=== PATIENT | male | born 1950 | race Caucasian/White ===

== ENCOUNTER 2017-01-21 18:59 | Emergency (ER) | payer SELFPAY ==
[2017-01-21] MEDS ORDERED: Haloperidol Lactate 5 mg/mL 1mL Vial IM STA (19:17)
[2017-01-21] MEDS ORDERED: Haloperidol Lactate 5 mg/mL 1mL Vial ONE (20:02)
[2017-01-21] MEDS: Haloperidol Lactate 5 mg/mL 1mL Vial IVP STA (20:06)
--- NOTE | 2017-01-21 20:08 | ED Physician Chart ---
Chief Complaint/HPI - Patient Information Date Seen:: 01/21/17 Time Seen:: 19:40 Chief Complaint:: ALCOHOL INTOXICATION History of Present Illness:: THIS IS A 66 YO MALE BIB EMS DRUNK, COMBATIVE AND SCREENING OUT AND UNCOOPERATIVE THE PATIENT WAS FOUND DOWN OUTSIDE THE TAVERN THIS AFTERNOON. Allergies:: Allergies Allergy/AdvReac Type Severity Reaction Status Date / Time No Known Allergies Allergy Verified 01/21/17 19:16 Vitals:: Vital Signs - 8 hr 01/21/17 19:16 Temp 98.1 F HR 102 RR 20 BP 131/86 O2 Sat % 96 Historian:: EMS Review:: Nurse's Note Reviewed Review of Systems - Review of Systems General/Constitutional: No fever, No chills, No weight loss, No weakness, No diaphoresis, No edema, No loss of appetite Skin: No skin lesions, No rash, No bruising, Other (THE PATIENT IS TOO DRUNK TO GIVE A REVIEW OF SYSTEMS) Head: No headache, No light-headedness Eyes: No loss of vision, No pain, No diplopia ENT: No earache, No nasal drainage, No sore throat, No tinnitus Neck: No neck pain, No swelling, No thyromegaly, No stiffness, No mass noted Cardio Vascular: No chest pain, No palpitations, No PND, No orthopnea, No edema Pulmonary: No SOB, No cough, No sputum, No wheezing GI: No nausea, No vomiting, No diarrhea, No pain, No melena, No hematochezia, No constipation, No hematemesis G/U: No dysuria, No frequency, No hematuria Musculoskeletal: No bone or joint pain, No back pain, No muscle pain Endocrine: No polyuria, No polydipsia Psychiatric: No prior psych history, No depression, No anxiety, No suicidal ideation Hematopoietic: No bruising, No lymphadenopathy Allergic/Immuno: No urticaria, No angioedema Neurological: No syncope, No focal symptoms, No weakness, No paresthesia, No headache, No seizure, No dizziness, No confusion, No vertigo Past Medical History - Past Medical History Obtainable: Yes (THE PATIENT IS UNABLE TO GIVE A HISTORY) Family Medical History - Family Member father History Unknown: Yes Physical Exam - Physical Examination General/Constitutional: Awake, Well-developed, well-nourished, Alert, No distress, GCS 15, Non-toxic appearing, Ambulatory Other Gen/Cons comments:: THIS PATIENT SMELLS LIKE ALCOHOL WITH SCREAMING LOUD INSULT TO THE STAFF AND UNCOOPERATIVE. Head: Atraumatic Eyes: Lids, conjuctiva normal, PERRL, EOMI Skin: Nl inspection, No rash, No skin lesions, No ecchymosis, Well hydrated, No lymphadenopathy ENMT: External ears, nose nl, Nasal exam nl, Lips, teeth, gums nl Neck: Nontender, Full ROM w/o pain, No JVD, No nuchal rigidity, No bruit, No mass, No stridor Respiratory: Nl effort/Exclusion, Clear to Auscultation, No Wheeze/Rhonchi/Rales Cardio Vascular: RRR, No murmur, gallop, rubs, NL S1 S2 GI: No tenderness/rebounding/guarding, No organomegaly, No hernia, Normal BS's, Nondistended, No mass/bruits, No McBurney tenderness : No CVA tenderness Extremities: No tenderness or effusion, Full ROM, normal strength in all extremities, No edema, Normal digits & nails Neuro/Psych: Alert/oriented, DTR's symmetric, Normal sensory exam, Normal motor strength, Judgement/insight normal, Mood normal, Normal gait, No focal deficits Misc: normal gait, Normal back, No paraspinal tenderness Labs/Radiology/EKG Results - Lab Results Results: Abnormal Lab Results 01/21/17 20:28 WBC 3.7 L RBC 3.50 L Hgb 10.6 L Hct 31.4 L MCV 89.8 MCH 30.2 MCHC Differential 33.7 RDW 15.1 Plt Count 220 MPV 7.4 Neutrophils % 69.3 Lymphocytes % 19.1 L Monocytes % 9.6 Eosinophils % 1.4 Basophils % 0.6 ED Septic Shock - . Is Septic Shock (SBP<90, OR Lactate>4 mmol\L) present?: No - <6hrs of presentation: Vital Signs: Vital Signs - 8 hr 01/21/17 19:16 Temp 98.1 F HR 102 RR 20 BP 131/86 O2 Sat % 96 Reassessment (Disposition) - Reassessment Reassessment Condition:: Improved - Diagnosis Diagnosis:: ALCOHOL INTOXICATION - Aftercare/Follow up Instructions Aftercare/Follow-Up Instructions:: Counseled pt regarding lab results/diagnosis & need follow up, Refer to Discharge Instructions, Counseled pt & family regarding lab results/diagnosis & need follow up - Patient Disposition Discharge/Transfer:: Home Condition at Disposition:: Improved ED Discharge Plan - Patient Disposition Instructions: Alcohol Intoxication, [id number]
[2017-01-21 20:49] LABS: % BASOPHILS 0.6 % (0.0-2.0); % EOSINOPHILS 1.4 % (0.0-5.0); % LYMPHOCYTES 19.1 % (20.0-50.0); % MONOCYTES 9.6 % (2.0-10.0); % NEUTROPHILS 69.3 % (40.0-80.0); HEMATOCRIT 31.4 % (39.0-49.0); HEMOGLOBIN 10.6 gm/dL (12.6-17.4); MEAN CELL VOLUME 89.8 fl (80-99); MEAN CORPUSCULAR HEMOGLOBIN 30.2 pg (27.0-31.0); MEAN CORPUSCULAR HGB CONC 33.7 pg (28.0-36.0); MEAN PLATELET VOLUME 7.4 fl; NEUTROPHILE ABSOLUTE 2.5 Th/cmm (1.8-8.0); PLATELET COUNT 220 Th/cmm (150-400); RED CELL DISTRIBUTION WIDTH 15.1 % (11.5-20.0)
[2017-01-21 21:16] LABS: INR 0.99 (0.5-1.4); PROTHROMBIN TIME (TEST) 10.3 SECONDS (9.5-11.5)
[2017-01-21 21:18] LABS: WHITE BLOOD COUNT 3.7 Th/cmm (4.8-10.8)
[2017-01-21 21:30] LABS: ALKALINE PHOSPHATASE 83 U/L (34-104); ANION GAP 15.2 (7.0-16.0); BILIRUBIN,TOTAL 0.4 mg/dL (0.3-1.0); BUN - UREA NITROGEN 18 mg/dL (7-25); BUN/CREATININE RATIO 12.9; CALCIUM SERUM 9.1 mg/dL (8.6-10.3); CARBON DIOXIDE 17.1 mEq/L (21.0-31.0); CHLORIDE 107 mEq/L (98-107); CHOLESTEROL 175 mg/dL (<200); CREATININE - SERUM 1.4 mg/dL (0.7-1.3); GLUCOSE 99 mg/dL (70-105); POTASSIUM SERUM 4.3 mEq/L (3.5-5.1); SGOT 20 U/L (13-39); SGPT/ALT 10 U/L (7-52); SODIUM SERUM 135 mEq/L (136-145); TRIGLYCERIDES 138 mg/dL (<150)
[2017-01-21] MEDS: Sodium Chloride 0.9% 1,000 ML IV ONE (23:50)
[2017-01-22] MEDS ORDERED: 0.45% NS w/20 mEq KCl 1,000 ML IV ONE (04:27)
[2017-01-22] MEDS: 0.45% NS w/20 mEq KCl 1,000 ML IV SCH (04:28)
== END 2017-01-22 07:00 | disposition home or self-care (01) ==
LOC: ER 18:59
DX: F10.129 Alcohol abuse with intoxication, unspecified (principal)
CPT/HCPCS: 99285; 96361; 96374; 96375; 84484; 36415 ×2; 83605 ×2; 84443; 86592; 85025; 85610; 85730; 80320; 80053; 80061; J2060; J3480; J1630; J7030; Z7502